=== PATIENT | male | born 1960 | race Caucasian/White ===

== ENCOUNTER 2020-04-08 07:57 | Day surgery (SDC) | payer MEDICARE, OTHER ==
[~2020-04-08 07:57] MED LIST: Cefuroxime 10 MG/ML SYRINGE EYERT SCH; Lidocaine 1% PF 2 ML SDV INJECT SCH; Pilocarpine 4% Ophth Soln 15 ML Bot EYERT SCH
[2020-04-08] MEDS: Polymyxin B/Trimethoprim 10 ML Bottle EYERT SCH ×3 (09:21→10:59)
[2020-04-08] MEDS: Brimonidine 0.2% Ophth Soln 5 ML Bottle EYERT SCH ×3 (09:26→10:59)
[2020-04-08] MEDS: Phenylephrine 2.5% Ophth Soln 2 ML Bot EYERT SCH ×5 (09:31→10:40)
[2020-04-08] MEDS: Tropicamide 1% Ophth Soln 15 ML Bottle EYERT SCH ×4 (09:39→10:20)
--- NOTE | 2020-04-08 10:29 | PCM.PREANE ---
Preanesthetic Assessment - Procedure Proposed Procedure: Cataract Extraction with IOL - Anesthesia/Transfusion/Family Hx Anesthesia History: Prior Anesthesia Without Reaction Family History of Anesthesia Reaction: No - Review of Systems General: No Symptoms Pulmonary: No Symptoms Cardiovascular: No Symptoms, Other (Hypertension, Cardiac Stent x 2 last one in 2017, on Eliquis. No chest pain since stent was placed. ) Gastrointestinal: No Symptoms Neurological: No Symptoms Other: Reports: Diabetes (Type I. Insulin pump, blood glucose 115 mg/dl) - Physical Assessment NPO Status Date: 04/07/20 NPO Status Time: 18:00 Vital Signs: Last Vital Signs Temp 36.6 C 04/08/20 09:05 Pulse 73 04/08/20 09:05 Resp 16 04/08/20 09:05 BP 162/93 H 04/08/20 09:05 Pulse Ox 98 04/08/20 09:05 Height: 1.8 m Weight: 67.132 kg ASA Class: 3 Mental Status: Alert & Oriented x3 Airway Class: Mallampati = 1 Dentition: Reports: Missing Tooth/Teeth (None upper, multiple missing bottom. Remaining secure per pateint.) Thyro-Mental Finger Breadths: 3 Mouth Opening Finger Breadths: 3 ROM/Head Extension: Full Lungs: Clear to Auscultation, Normal Respiratory Effort Cardiovascular: Regular Rate, Regular Rhythm - Allergies Allergies/Adverse Reactions: Allergies Allergy/AdvReac Type Severity Reaction Status Date / Time No Known Allergies Allergy Verified 04/07/20 08:47 - Acknowledgements Anesthesia Type Planned: MAC Pt an Appropriate Candidate for the Planned Anesthesia: Yes Alternatives and Risks of Anesthesia Discussed w Pt/Guardian: Yes Pt/Guardian Understands and Agrees with Anesthesia Plan: Yes PreAnesthesia Questionnaire - HOME MEDS Home Medications: Home Meds Apixaban [Eliquis] 5 mg PO BID 04/07/20 [History] Insulin Aspart [NovoLOG] 1 dose SQ ASDIRECTED PRN 04/07/20 [History] Torsemide 5 mg PO DAILY 04/07/20 [History] - CURRENT (IN HOUSE) MEDS Current Meds: Current Medications Brimonidine Tartrate (Alphagan 0.2% Ophth Soln) 0 ml EYERT ASDIRECTED ANASTASIYA Stop: 04/08/20 18:00 Last Admin: 04/08/20 10:10 Dose: 1 drop Documented by: Cefuroxime Sodium (Zinacef) 0 mg EYERT ASDIRECTED ANASTASIYA Stop: 04/08/20 23:00 Lidocaine HCl (Xylocaine-Mpf 1%) 0 ml INJECT ASDIRECTED ANASTASIYA Stop: 04/08/20 23:00 Phenylephrine HCl (Vishal-Synephrine 2.5% Ophth Soln) 0 ml EYERT ASDIRECTED ANASTASIYA Stop: 04/08/20 23:00 Last Admin: 04/08/20 10:15 Dose: 1 drop Documented by: Pilocarpine HCl (Pilocar 4% Ophth Soln) 0 ml EYERT ASDIRECTED ANASTASIYA Stop: 04/08/20 23:00 Polymyxin/Trimethoprim Sulfate (Polytrim Ophth Soln) 0 ml EYERT ASDIRECTED ANASTASIYA Stop: 04/08/20 23:00 Last Admin: 04/08/20 10:05 Dose: 1 drop Documented by: Tetracaine HCl (Tetracaine 0.5% Steri-Unit Marita) 0 ml EYEBOTH ASDIRECTED ANASTASIYA Stop: 04/08/20 23:00 Tropicamide (Mydriacyl 1% Oph Soln) 0 ml EYERT ASDIRECTED ANASTASIYA Stop: 04/08/20 23:00 Last Admin: 04/08/20 10:20 Dose: 1 drop Documented by:
[2020-04-08] MEDS: Tetracaine HCl/PF 0.5% 4 ML Bottle EYEBOTH SCH ×2 (10:31→10:45)
--- NOTE | 2020-04-08 11:02 | PCM48HPAN ---
Post Anesthesia Note - EVALUATION WITHIN 48HRS OF ANESTHETIC Vital Signs in Normal Range: Yes Patient Participated in Evaluation: Yes Respiratory Function Stable: Yes Airway Patent: Yes Cardiovascular Function Stable: Yes Hydration Status Stable: Yes Pain Control Satisfactory: Yes Nausea and Vomiting Control Satisfactory: Yes Mental Status Recovered: Yes Vital Signs: Last Vital Signs Temp 36.6 C 04/08/20 09:05 Pulse 73 04/08/20 09:05 Resp 16 04/08/20 09:05 BP 162/93 H 04/08/20 09:05 Pulse Ox 98 04/08/20 09:05
== END 2020-04-08 11:12 | disposition home or self-care (01) ==
LOC: JD.SDS 07:57
PROVIDERS: ATTEND Ophthalmology
DX: E10.36 Type 1 diabetes mellitus with diabetic cataract (principal); H25.813 Combined forms of age-related cataract, bilateral; E10.3313 Type 1 diabetes mellitus with moderate nonproliferative diabetic retinopathy with macular edema, bilateral; H40.003 Preglaucoma, unspecified, bilateral; H21.81 Floppy iris syndrome; H16.103 Unspecified superficial keratitis, bilateral; H35.373 Puckering of macula, bilateral; H16.223 Keratoconjunctivitis sicca, not specified as Sjogren's, bilateral; H21.41 Pupillary membranes, right eye; E78.00 Pure hypercholesterolemia, unspecified; I10 Essential (primary) hypertension; Z79.899 Other long term (current) drug therapy
CPT/HCPCS: 66982; J0697; J2001; C1780